=== PATIENT | female | born 1940 | race Caucasian/White ===

== ENCOUNTER 2016-10-19 14:06 | Emergency (ER) | payer OTHER ==
[~2016-10-19] VITALS: Ht 172.7 cm; Wt 75.9 kg
--- NOTE | ~2016-10-19 | CR141 ---
[facility]. [facility] A Service of [facility] & [facility] RADIOLOGY TEXT RESULTS PATIENT: LORE OLIVIA LOCATION: SED : 42 UNIT #: [id number] AGE: [address]: FREDRICK YAÑEZ SEX: F ORDER DR: [id number] [address] [address] [id number] MR#: [id number] Acc #: [id number] NAME: LORE OLIVIA : 1940 SEX: F STUDY DATE/TIME: 10/19/2016 15:18 UNIT: SED ROOM: STUDY DESCRIPTION: CR Hand Min 3 Views Lt Attending Physician: Robert Jay Ordering Physician: Physician Non-Staff Primary Care Physician: Rolando Sullivan M.D. MEDICAL IMAGING REPORT This report is preliminary unless electronic signature is present. EXAM Left hand 10/19/2016 INDICATIONS 76-year-old female with pain and swelling bruising of the fourth and fifth metacarpals today, tripped over a dog backwards. TECHNIQUE 3 views left hand. No comparisons FINDINGS The bones are osteoporotic. No acute fracture or significant soft tissue swelling. There are degenerative changes of the PIP and DIP joints. IMPRESSION 1. No acute fracture 2. Degenerative changes of the DIP and PIP joints of all digits. More advanced degenerative change of the first carpometacarpal joint. 3. Osteoporosis. Dictated by... Theodore Nguyen M.D. THIS IS AN ELECTRONICALLY VERIFIED REPORT Theodore Nguyen M.D. at 10/20/2016 11:21 PM JOSÉ MIGUEL/shiela TD: 10/20/2016 04:44 JOB #: [id number] MEDICAL IMAGING REPORT Page 1 of 1
[~2016-10-19 14:06] MED LIST: MEDROL PO; VICODIN 5/500 T1 TAB PO; ZITHROMAX PO
== END 2016-10-19 16:32 | disposition home or self-care (01) ==
LOC: SED 14:06
DX: S60.222A Contusion of left hand, initial encounter (principal); F17.200 Nicotine dependence, unspecified, uncomplicated; Z88.0 Allergy status to penicillin; W01.0XXA Fall on same level from slipping, tripping and stumbling without subsequent striking against object, initial encounter; Y92.009 Unspecified place in unspecified non-institutional (private) residence as the place of occurrence of the external cause
CPT/HCPCS: 29280; 73130; 99283